=== PATIENT | female | born 1970 | race African-American/Black ===

== ENCOUNTER 2017-08-20 11:36 | Outpatient (CLI) | payer OTHER | END 2017-08-20 18:59 | disposition home or self-care (01) | LOC: LAB 11:36 | DX: N30.80 Other cystitis without hematuria (principal) | CPT/HCPCS: 87088 ==

== ENCOUNTER 2019-04-13 06:05 | Outpatient (CLI) | payer OTHER ==
[2019-04-13] MEDS ORDERED: PROPRANOLOL10 MG PO (06:44)
[2019-04-13] MEDS ORDERED: SEROQUEL200 MG PO (06:44)
[2019-04-13] MEDS ORDERED: FLUTMIS6 INH (06:46)
[2019-04-13] MEDS ORDERED: LORA0.5T17 PO (06:47)
[2019-04-13] MEDS ORDERED: NOVOLIN N100 UNIT/2 SC (06:48)
[2019-04-13] MEDS ORDERED: PANTOPRAZOLE 40MG TA PO (06:48)
== END 2019-04-13 06:17 | disposition short-term general hospital (02) ==
LOC: AMB 06:05
DX: R06.09 Other forms of dyspnea (principal); F41.0 Panic disorder [episodic paroxysmal anxiety]
CPT/HCPCS: A0425; A0427

== ENCOUNTER 2019-04-13 06:23 | Emergency (ER) | payer OTHER ==
[~2019-04-13] VITALS: Ht 157.5 cm; Wt 67.1 kg
[2019-04-13 06:38] VITALS: TEMP 98.2
[2019-04-13] MEDS ORDERED: SEROQUEL200 MG PO (06:44)
[2019-04-13] MEDS ORDERED: PROPRANOLOL10 MG PO (06:44)
[2019-04-13] MEDS ORDERED: FLUTMIS6 INH (06:46)
[2019-04-13] MEDS ORDERED: LORA0.5T17 PO (06:47)
[2019-04-13] MEDS ORDERED: PANTOPRAZOLE 40MG TA PO (06:48)
[2019-04-13] MEDS ORDERED: NOVOLIN N100 UNIT/2 SC (06:48)
[2019-04-13 07:15] LABS: PLATELET COUNT 254 K/uL (152-353)
[2019-04-13 07:24] LABS: POTASSIUM 3.4 mmol/L (3.6-5.2); SODIUM 138 mmol/L (136-145)
[2019-04-13 09:42] VITALS: BP 121/68
== END 2019-04-13 09:45 | disposition home or self-care (01) ==
LOC: ED 06:23
PROVIDERS: Emergency Medicine
DX: F41.8 Other specified anxiety disorders (principal); E87.6 Hypokalemia; E11.65 Type 2 diabetes mellitus with hyperglycemia; Z79.4 Long term (current) use of insulin; R00.1 Bradycardia, unspecified
CPT/HCPCS: 36415; 80053; 81000; 82550; 82553; 84484; 85027; 93005; 96372; 99283; J1815

== ENCOUNTER 2019-04-16 09:24 | Emergency (ER) | payer OTHER ==
[~2019-04-16] VITALS: Ht 157.5 cm; Wt 67.1 kg
[~2019-04-16 09:24] MED LIST: FLUTMIS6 INH; LORA0.5T17 PO; NOVOLIN N100 UNIT/2 SC; PANTOPRAZOLE 40MG TA PO; PROPRANOLOL10 MG PO; SEROQUEL200 MG PO
[2019-04-16 09:33] VITALS: TEMP 97.9
[2019-04-16 11:23] VITALS: BP 113/78
== END 2019-04-16 11:24 | disposition home or self-care (01) ==
LOC: ED 09:24
DX: R13.19 Other dysphagia (principal); F41.8 Other specified anxiety disorders
CPT/HCPCS: 96372; 99283; J1610; Q9963

== ENCOUNTER 2019-04-18 15:52 | Emergency (ER) | payer OTHER ==
[~2019-04-18] VITALS: Ht 157.5 cm; Wt 67.1 kg
[2019-04-18 16:10] VITALS: TEMP 97.3
[2019-04-18 17:05] VITALS: BP 126/74
== END 2019-04-18 17:05 | disposition home or self-care (01) ==
LOC: ED 15:52
DX: F45.8 Other somatoform disorders (principal)
CPT/HCPCS: 99281

== ENCOUNTER 2019-04-21 11:56 | Emergency (ER) | payer OTHER ==
[~2019-04-21] VITALS: Ht 157.5 cm; Wt 66.2 kg
[2019-04-21 13:30] VITALS: BP 131/85; TEMP 97.7
== END 2019-04-21 13:30 | disposition home or self-care (01) ==
LOC: ED 11:56
DX: F20.89 Other schizophrenia (principal); T88.7XXA Unspecified adverse effect of drug or medicament, initial encounter; T43.595A Adverse effect of other antipsychotics and neuroleptics, initial encounter; Y92.89 Other specified places as the place of occurrence of the external cause
CPT/HCPCS: 99282

== ENCOUNTER 2019-05-02 10:43 | Outpatient (CLI) | payer OTHER ==
[2019-05-02 10:59] LABS: PLATELET COUNT 263 K/uL (152-353)
[2019-05-02 11:20] LABS: POTASSIUM 3.6 mmol/L (3.6-5.2)
== END 2019-05-02 23:32 | disposition home or self-care (01) ==
LOC: LABW 10:43
PROVIDERS: Family Medicine
DX: E11.9 Type 2 diabetes mellitus without complications (principal); I10 Essential (primary) hypertension; R82.998 Other abnormal findings in urine
CPT/HCPCS: 36415; 80053; 80061; 81000; 83036; 84439; 84443; 85027; 87086; 87088

== ENCOUNTER 2019-06-15 10:26 | Emergency (ER) | payer OTHER ==
[~2019-06-15] VITALS: Ht 157.5 cm; Wt 66.2 kg
[2019-06-15 10:38] VITALS: TEMP 98
[2019-06-15 11:12] LABS: PLATELET COUNT 232 K/uL (152-353)
[2019-06-15 11:21] LABS: POTASSIUM 2.9 mmol/L (3.6-5.2)
[2019-06-15 12:02] VITALS: BP 136/78
== END 2019-06-15 12:02 | disposition home or self-care (01) ==
LOC: ED 10:26
PROVIDERS: Hospitalist
DX: F41.8 Other specified anxiety disorders (principal); E87.6 Hypokalemia
CPT/HCPCS: 80048; 80320; 81000; 85027; 93005; 96372; 99283; J2060

== ENCOUNTER 2019-06-19 18:58 | Emergency (ER) | payer OTHER ==
[~2019-06-19] VITALS: Ht 157.5 cm; Wt 66.2 kg
[2019-06-19 19:18] VITALS: BP 1551/85; TEMP 97.7
== END 2019-06-19 19:43 | disposition home or self-care (01) ==
LOC: ED 18:58
DX: F41.1 Generalized anxiety disorder (principal); F19.20 Other psychoactive substance dependence, uncomplicated; F13.20 Sedative, hypnotic or anxiolytic dependence, uncomplicated
CPT/HCPCS: 96372; 99282; J2060

== ENCOUNTER 2019-06-20 08:42 | Emergency (ER) | payer OTHER ==
[~2019-06-20] VITALS: Ht 157.5 cm; Wt 61.2 kg
[2019-06-20 10:41] VITALS: BP 138/90; TEMP 97.5
== END 2019-06-20 10:41 | disposition home or self-care (01) ==
LOC: ED 08:42
DX: F41.8 Other specified anxiety disorders (principal); I10 Essential (primary) hypertension
CPT/HCPCS: 99283

== ENCOUNTER 2019-06-21 09:38 | Emergency (ER) | payer OTHER ==
[~2019-06-21] VITALS: Ht 157.5 cm; Wt 60.3 kg
[2019-06-21 10:39] VITALS: BP 124/65; TEMP 98.6
== END 2019-06-21 10:41 | disposition home or self-care (01) ==
LOC: ED 09:38
DX: F13.10 Sedative, hypnotic or anxiolytic abuse, uncomplicated (principal); Z76.5 Malingerer [conscious simulation]
CPT/HCPCS: 99282

== ENCOUNTER 2019-06-24 08:38 | Outpatient (CLI) | payer OTHER | END 2019-06-24 20:56 | disposition home or self-care (01) | LOC: LABW 08:38 | DX: F41.8 Other specified anxiety disorders (principal) | CPT/HCPCS: 36415; 84439; 84443 ==

== ENCOUNTER 2019-07-03 14:21 | Emergency (ER) | payer OTHER ==
[~2019-07-03] VITALS: Ht 157.5 cm; Wt 60.3 kg
[2019-07-03 15:29] VITALS: BP 129/89; TEMP 97.5
== END 2019-07-03 15:31 | disposition home or self-care (01) ==
LOC: ED 14:21
DX: M26.69 Other specified disorders of temporomandibular joint (principal)
CPT/HCPCS: 96372; 99282; J1885

== ENCOUNTER 2019-07-16 10:23 | Emergency (ER) | payer OTHER ==
[~2019-07-16] VITALS: Ht 157.5 cm; Wt 58.5 kg
[2019-07-16 10:35] VITALS: TEMP 97.7
[2019-07-16 11:01] LABS: PLATELET COUNT 329 K/uL (152-353)
[2019-07-16 11:13] LABS: SODIUM 134 mmol/L (136-145)
[2019-07-16 11:59] VITALS: BP 109/68
== END 2019-07-16 11:57 | disposition home or self-care (01) ==
LOC: ED 10:23
PROVIDERS: Emergency Medicine
DX: F41.8 Other specified anxiety disorders (principal); R07.89 Other chest pain; R00.0 Tachycardia, unspecified
CPT/HCPCS: 80053; 82550; 82553; 84484; 85027; 93005; 96372; 99283; J2060

== ENCOUNTER 2019-07-17 08:25 | Emergency (ER) | payer OTHER ==
[~2019-07-17] VITALS: Ht 157.5 cm; Wt 58.5 kg
[2019-07-17 08:32] VITALS: BP 147/96; TEMP 98.2
== END 2019-07-17 08:52 | disposition home or self-care (01) ==
LOC: ED 08:25
DX: F41.8 Other specified anxiety disorders (principal)
CPT/HCPCS: 99282

== ENCOUNTER 2019-07-19 07:15 | Emergency (ER) | payer OTHER ==
[~2019-07-19] VITALS: Ht 157.5 cm; Wt 59.0 kg
[2019-07-19 07:20] VITALS: BP 126/84; TEMP 98.8
== END 2019-07-19 08:37 | disposition home or self-care (01) ==
LOC: ED 07:15
DX: F41.8 Other specified anxiety disorders (principal); N39.0 Urinary tract infection, site not specified
CPT/HCPCS: 81000; 87086; 87088; 99283

== ENCOUNTER 2019-07-20 08:51 | Emergency (ER) | payer OTHER ==
[~2019-07-20] VITALS: Ht 157.5 cm; Wt 58.5 kg
[2019-07-20 09:09] VITALS: TEMP 97
[2019-07-20 09:51] VITALS: BP 128/89
== END 2019-07-20 10:03 | disposition home or self-care (01) ==
LOC: ED 08:51
DX: F41.8 Other specified anxiety disorders (principal)
CPT/HCPCS: 99282

== ENCOUNTER 2019-07-21 08:44 | Emergency (ER) | payer OTHER ==
[~2019-07-21] VITALS: Ht 157.5 cm; Wt 58.5 kg
[2019-07-21 09:29] VITALS: BP 130/85; TEMP 97.8
== END 2019-07-21 09:32 | disposition home or self-care (01) ==
LOC: ED 08:44
DX: F41.8 Other specified anxiety disorders (principal)
CPT/HCPCS: 99282

== ENCOUNTER 2019-07-22 10:01 | Emergency (ER) | payer OTHER ==
[~2019-07-22] VITALS: Ht 157.5 cm; Wt 58.5 kg
[2019-07-22 10:05] VITALS: BP 136/100; TEMP 98.6
== END 2019-07-22 11:38 | disposition home or self-care (01) ==
LOC: ED 10:01
DX: F41.8 Other specified anxiety disorders (principal)
CPT/HCPCS: 99282

== ENCOUNTER 2019-07-24 14:20 | Emergency (ER) | payer OTHER ==
[~2019-07-24] VITALS: Ht 157.5 cm; Wt 58.5 kg
[2019-07-24 15:13] LABS: PLATELET COUNT 288 K/uL (152-353)
[2019-07-24 15:25] LABS: SODIUM 135 mmol/L (136-145)
[2019-07-24 15:35] VITALS: TEMP 98.4
[2019-07-24] MEDS ORDERED: BENZ1TAB43 PO (16:08)
[2019-07-24] MEDS ORDERED: BUSPIRONE30 MG PO (16:09)
[2019-07-24] MEDS ORDERED: BUSP15TAB2 PO (16:09)
[2019-07-24] MEDS ORDERED: SERT100T PO (16:10)
[2019-07-24] MEDS ORDERED: LATUDA40 MG PO (16:10)
[2019-07-24 18:40] VITALS: BP 141/88
== END 2019-07-24 18:46 | disposition other institution (70) ==
LOC: ED 14:20
PROVIDERS: Emergency Medicine
DX: F41.8 Other specified anxiety disorders (principal); E11.9 Type 2 diabetes mellitus without complications; R00.0 Tachycardia, unspecified
CPT/HCPCS: 36415; 80053; 80307; 80320; 80329; 81000; 82550; 82962; 84484; 85027; 93005; 96360; 96375; 99285; J2060

== ENCOUNTER 2019-09-02 19:37 | Emergency (ER) | payer OTHER ==
[~2019-09-02] VITALS: Ht 157.5 cm; Wt 64.4 kg
[~2019-09-02 19:37] MED LIST changes: +BENZ1TAB43 PO; +BUSP15TAB2 PO; +BUSPIRONE30 MG PO; +LATUDA40 MG PO; +SERT100T PO
[2019-09-02 21:02] VITALS: BP 107/88; TEMP 97.9
== END 2019-09-02 21:02 | disposition home or self-care (01) ==
LOC: ED 19:37
DX: F07.81 Postconcussional syndrome (principal); W01.198A Fall on same level from slipping, tripping and stumbling with subsequent striking against other object, initial encounter; Y92.89 Other specified places as the place of occurrence of the external cause
CPT/HCPCS: 99283

== ENCOUNTER 2019-09-16 11:48 | Outpatient (CLI) | payer OTHER | END 2019-09-16 19:00 | disposition home or self-care (01) | LOC: RAD 11:48 | DX: M25.511 Pain in right shoulder (principal) ==

== ENCOUNTER 2019-10-22 11:10 | Outpatient (CLI) | payer OTHER | END 2019-10-22 21:53 | disposition home or self-care (01) | LOC: MRI 11:10 | DX: F07.81 Postconcussional syndrome (principal) ==

== ENCOUNTER 2019-12-12 11:36 | Outpatient (CLI) | payer OTHER | END 2019-12-12 19:40 | disposition home or self-care (01) | LOC: RAD 11:36 | DX: S40.011A Contusion of right shoulder, initial encounter (principal) ==

== ENCOUNTER 2019-12-25 06:57 | Emergency (ER) | payer OTHER ==
[~2019-12-25] VITALS: Ht 154.9 cm; Wt 61.7 kg
[2019-12-25 07:14] VITALS: TEMP 98.1
[2019-12-25 09:51] VITALS: BP 119/71
== END 2019-12-25 09:51 | disposition home or self-care (01) ==
LOC: ED 06:57
DX: S09.8XXA Other specified injuries of head, initial encounter (principal); S63.682A Other sprain of left thumb, initial encounter; W01.0XXA Fall on same level from slipping, tripping and stumbling without subsequent striking against object, initial encounter; Y92.098 Other place in other non-institutional residence as the place of occurrence of the external cause
CPT/HCPCS: 99283

== ENCOUNTER 2020-01-27 11:51 | Outpatient (CLI) | payer OTHER | END 2020-01-27 19:23 | disposition home or self-care (01) | LOC: RAD 11:51 | DX: S40.011A Contusion of right shoulder, initial encounter (principal) ==

== ENCOUNTER 2020-02-04 08:48 | Outpatient (CLI) | payer OTHER | END 2020-02-04 19:23 | disposition home or self-care (01) | LOC: MRI 08:48 | DX: E23.6 Other disorders of pituitary gland (principal) | CPT/HCPCS: 36415; 82565; 84520; A9576 ==

== ENCOUNTER 2020-02-19 19:25 | Emergency (ER) | payer OTHER ==
[~2020-02-19] VITALS: Ht 154.9 cm; Wt 61.7 kg
[2020-02-19 20:03] LABS: PLATELET COUNT 217 K/uL (152-353)
[2020-02-19 21:00] VITALS: BP 139/79; TEMP 97.9
== END 2020-02-19 21:00 | disposition home or self-care (01) ==
LOC: ED 19:25
PROVIDERS: Family Medicine
DX: E11.65 Type 2 diabetes mellitus with hyperglycemia (principal); Z79.4 Long term (current) use of insulin
CPT/HCPCS: 80053; 85027; 96372; 99283; J1815

== ENCOUNTER 2020-05-08 17:24 | Emergency (ER) | payer OTHER ==
[~2020-05-08] VITALS: Ht 154.9 cm; Wt 61.7 kg
[2020-05-08 18:30] VITALS: BP 122/84; TEMP 98
== END 2020-05-08 18:33 | disposition home or self-care (01) ==
LOC: ED 17:24
DX: S91.332A Puncture wound without foreign body, left foot, initial encounter (principal); W45.0XXA Nail entering through skin, initial encounter; Y92.89 Other specified places as the place of occurrence of the external cause
CPT/HCPCS: 90471; 90715; 99283

== ENCOUNTER 2020-05-14 17:15 | Emergency (ER) | payer OTHER ==
[~2020-05-14] VITALS: Ht 154.9 cm; Wt 70.8 kg
[~2020-05-14 17:15] MED LIST changes: +AMBIEN5 MG PO; +ASA LOW DOSE81 MG PO; +BASAGLAR K100 UNIT/M SC; +CHLO25TA12 PO; +CLON1TAB18 PO; +DULOXETINE HCL30 MG PO; +LAMICTAL25 MG PO; +LANTUS100 UNIT/M SC; +METO-837; +PEPCID40 MG PO; +VIT C/ACEROL500 MG PO
[2020-05-14 18:29] LABS: PLATELET COUNT 230 K/uL (152-353)
[2020-05-14 18:33] LABS: POTASSIUM 4.5 mmol/L (3.6-5.2)
== END 2020-05-14 20:05 | disposition home or self-care (01) ==
LOC: ED 17:15
PROVIDERS: Family Medicine
DX: U07.1 COVID-19 (principal); R11.2 Nausea with vomiting, unspecified; E86.0 Dehydration
CPT/HCPCS: 36415; 80053; 82150; 83690; 84484; 85027; 93005; 96360; 96375; 99284; J2405

== ENCOUNTER 2020-06-10 16:56 | Outpatient (CLI) | payer OTHER | END 2020-06-10 19:35 | disposition home or self-care (01) | LOC: RAD 16:56 | DX: M47.896 Other spondylosis, lumbar region (principal); M41.84 Other forms of scoliosis, thoracic region ==

== ENCOUNTER 2020-06-15 15:52 | Emergency (ER) | payer OTHER ==
[~2020-06-15] VITALS: Ht 154.9 cm; Wt 68.0 kg
[2020-06-15 16:02] VITALS: TEMP 98
[2020-06-15 17:32] LABS: POTASSIUM 4.2 mmol/L (3.6-5.2)
[2020-06-15 17:34] LABS: PLATELET COUNT 253 K/uL (152-353)
[2020-06-15 18:46] VITALS: BP 110/70
== END 2020-06-15 18:46 | disposition home or self-care (01) ==
LOC: ED 15:52
PROVIDERS: Family Medicine
DX: E11.65 Type 2 diabetes mellitus with hyperglycemia (principal); Z79.4 Long term (current) use of insulin
CPT/HCPCS: 36415; 80053; 81000; 82962; 85027; 96360; 96375; 99284; J1815

== ENCOUNTER 2020-07-21 08:27 | Outpatient (CLI) | payer OTHER | END 2020-07-21 23:15 | disposition home or self-care (01) | LOC: US 08:27 | DX: I73.9 Peripheral vascular disease, unspecified (principal) ==

== ENCOUNTER 2020-07-22 09:25 | Outpatient (CLI) | payer OTHER | END 2020-07-22 23:05 | disposition home or self-care (01) | LOC: US 09:25 | DX: I73.9 Peripheral vascular disease, unspecified (principal) ==